=== PATIENT | male | born 1995 | race Two or more races ===

== ENCOUNTER 2024-03-13 19:30 | Emergency (ER) | payer OTHER ==
[~2024-03-13] VITALS: Ht 170.2 cm; Wt 86.6 kg
[2024-03-13 21:40] VITALS: PULSE 90; RESP 19; O2SAT 97
[2024-03-14 02:39] VITALS: TEMP 99.6
[2024-03-14] MEDS: HYDROcodone-ACET 10/325MG TAB PO ONE (04:08)
[2024-03-14 05:10] VITALS: BP 129/82; PULSE 84; RESP 14; O2SAT 97
[2024-03-14] MEDS: LIDOCAINE 1% HCL (LOCAL ANESTH.) INJ 20ML MDV ONE (05:34)
[2024-03-14] MEDS ORDERED: IBU600T PO (06:26)
== END 2024-03-14 06:37 | disposition home or self-care (01) ==
LOC: ER 19:30
DX: S52.91XA Unspecified fracture of right forearm, initial encounter for closed fracture (principal); M54.2 Cervicalgia; R51.9 Headache, unspecified; V86.56XA Driver of dirt bike or motor/cross bike injured in nontraffic accident, initial encounter; Y93.89 Activity, other specified; Y92.89 Other specified places as the place of occurrence of the external cause; Y99.8 Other external cause status
CPT/HCPCS: 25605; 29105; 70450; 71250; 72125; 73090; 73100; 74176; J2001